=== PATIENT | female | born 1970 | race Two or more races ===

== ENCOUNTER 2023-09-25 16:28 | Outpatient (CLI) | payer OTHER ==
[~2023-09-25 16:28] MED LIST: TRAMADOL HCL-AP1 TAB PO
== END 2023-09-25 16:30 | disposition home or self-care (01) ==
LOC: SONOGRAMA 16:28
PROVIDERS: ATTEND Pathology Anatomic Pathology & Clinical Pathology
DX: D34 Benign neoplasm of thyroid gland (principal); E07.89 Other specified disorders of thyroid; E04.2 Nontoxic multinodular goiter